=== PATIENT | female | born 1965 | race Caucasian/White ===

== ENCOUNTER 2021-12-24 12:43 | Outpatient (CLI) | payer OTHER ==
--- NOTE | 2021-12-24 16:26 | Ultrasound Report ---
PROCEDURE: Carotid Doppler Complete INDICATIONS: TRANSIENT VISUAL LOSS TECHNIQUE: Color and pulse Doppler interrogation was performed of both carotid systems, with image documentation and velocity measurements. COMPARISON: None. FINDINGS: Right side: Brachial blood pressure: 127/77 mm Hg. Common carotid artery peak systolic velocity: 60 cm/sec. Internal carotid artery peak systolic velocity: 71 cm/sec. Internal carotid artery end diastolic velocity: 31 cm/sec. External carotid artery peak systolic velocity: 102 cm/sec. ICA/CCA peak systolic ratio: 1.2 . Lin scale imaging description: Mild atherosclerotic plaque. Tortuous internal carotid arteries. Percent internal carotid artery stenosis: Less than 50% . Vertebral artery: Flow direction is antegrade. Left side: Brachial blood pressure: 129/77 mm Hg. Common carotid artery peak systolic velocity: 64 cm/sec. Internal carotid artery peak systolic velocity: 80 cm/sec. Internal carotid artery end diastolic velocity: 31 cm/sec. External carotid artery peak systolic velocity: 94 cm/sec. ICA/CCA peak systolic ratio: 1.2 . Lin scale imaging description: Mild atherosclerotic plaque. Tortuous internal carotid arteries. Percent internal carotid artery stenosis: Less than 50% . Vertebral artery: Flow direction is antegrade. Incidental right thyroid nodules are partially included on axial images. IMPRESSION: 1.Less than 50% stenosis of the bilateral internal carotid arteries. 2.Partially visualized right thyroid nodules of indeterminate significance. Consider thyroid ultrasou nd for further evaluation. The estimate of stenosis included in the report of the imaging study was calculated using the NASCET method Reviewed by: Kalpesh Zepeda MD on 12/24/2021 4:25 PM PDT Approved by: Kalpesh Zepeda MD on 12/24/2021 4:25 PM PDT Station ID: [id number]
== END 2021-12-24 12:44 | disposition home or self-care (01) ==
LOC: DI 12:43
PROVIDERS: ATTEND Family Medicine
DX: I65.23 Occlusion and stenosis of bilateral carotid arteries (principal); H53.129 Transient visual loss, unspecified eye
CPT/HCPCS: 93880

== ENCOUNTER 2022-07-24 11:02 | Outpatient (CLI) | payer OTHER ==
--- NOTE | 2022-07-24 13:24 | XRAY Report ---
PROCEDURE: Chest 2 View X-Ray INDICATIONS: PNEUMONIA, UNSPECIFIED ORGANISM TECHNIQUE: 2 views of the chest were acquired. COMPARISON: None. FINDINGS: Surgical changes and devices: None. Lungs and pleura: No pleural effusions or pneumothorax. Lungs are clear. Mediastinum: Mediastinal contours appear normal. Heart size is normal. Bones and chest wall: No suspicious bony lesions. Overlying soft tissues appear unremarkable. IMPRESSION: No acute cardiopulmonary disease. Reviewed by: Alpa Saleem MD on 07/24/2022 1:22 PM PDT Approved by: Alpa Saleem MD on 07/24/2022 1:22 PM PDT Station ID: [id number]
== END 2022-07-24 11:03 | disposition home or self-care (01) ==
LOC: DI 11:02
PROVIDERS: ATTEND Physician Assistant
DX: J18.9 Pneumonia, unspecified organism (principal)